=== PATIENT | female | born 1970 | race Caucasian/White ===

== ENCOUNTER 2018-06-10 18:22 | Inpatient (IN) | payer OTHER ==
[~2018-06-10] VITALS: Ht 177.8 cm; Wt 114.8 kg
[2018-06-10] MEDS ORDERED: ONDANSETRON HCL 4MG/2ML INJ IV STA (18:54)
[2018-06-10] MEDS ORDERED: MORPHINE SULFATE 4 MG/ML CPJ (NOT FOR IM USE) IV STA (18:54)
[2018-06-10] MEDS ORDERED: SODIUM CHLORIDE 0.9% 1,000 ML IV ONE (18:54)
[2018-06-10] MEDS ORDERED: TETANUS, DIPHTHERIA, PERTUSSIS VAC/PF 0.5ML (>7YR OLD) IM ONE (19:00)
[2018-06-10] MEDS ORDERED: BACITRACIN ZINC OINT UDPKT TOP ONE (19:00)
[2018-06-10] MEDS ORDERED: LIDOCAINE HCL/PF 1% 10 MG/ML 5ML VIAL IJ ONE (19:00)
[2018-06-10 21:28] LABS: HEMATOCRIT. 40.8 % (36.0-48.0); HEMOGLOBIN. 14.4 g/dL (12.0-16.0); MEAN CORPUSCULAR HEMOGLOBIN 28.5 pg (28.0-32.0); MEAN CORPUSCULAR VOLUME 80.7 fL (81.0-99.0); MEAN PLATELET VOLUME 7.1 fl (7.4-10.4); PLATELET 554 x1000/uL (130-400); RED BLOOD CELL COUNT 5.06 mill/uL (4.2-5.4); RED CELL DISTRIBUTION WIDTH 13.1 % (11.6-14.6)
[2018-06-10 21:35] LABS: CHLORIDE 107 mEq/L (98-107); PARTIAL THROMBOPLASTIN TIME 26.9 sec (23.4-31.0); PROTHROMBIN TIME 9.9 sec (9.1-11.1)
[2018-06-10 21:36] LABS: HCG SCREEN NEGATIVE
[2018-06-10] MEDS ORDERED: SODIUM CHLORIDE 0.9% 1000ML BAG (SEPSIS BOLUS) IV ONE (21:45)
[2018-06-10 22:03] LABS: PLATELET ESTIMATE INCREASED
[2018-06-10 23:43] LABS: CLARITY URINE CLEAR (CLEAR); COLOR URINE YELLOW (YELLOW); KETONES URINE TRACE (NEGATIVE); LEUKOCYTE ESTERASE URINE NEGATIVE (NEGATIVE); NITRITE URINE NEGATIVE (NEGATIVE); OCCULT BLOOD URINE 1+ (NEGATIVE); PH URINE 6.5 (4.5-8.0); PROTEIN URINE NEGATIVE (NEGATIVE); SPECIFIC GRAVITY URINE 1.019 (1.005-1.030)
[2018-06-10] MEDS ORDERED: LORAZEPAM 2MG/ML CPJ IV PRN (23:45)
[2018-06-10] MEDS ORDERED: CLONIDINE 0.1MG TABLET PO PRN (23:45)
[2018-06-11] MEDS: HYDROCODONE/ACETAMINOPHEN 5/325MG TABLET PO PRN ×2 (03:11→09:12)
[2018-06-11] MEDS: ONDANSETRON HCL 4MG/2ML INJ IV PRN ×2 (03:11→12:38)
[2018-06-11 06:27] VITALS: BP 128/75
[2018-06-11] MEDS ORDERED: DOCUSATE SODIUM 100MG CAPSULE PO PRN (08:00)
[2018-06-11] MEDS ORDERED: HYDROCODONE/ACETAMINOPHEN 5/325MG TABLET PO PRN (08:00)
[2018-06-11] MEDS ORDERED: ENOXAPARIN 40MG/0.4ML SYR SUBCUT SCH (08:00)
[2018-06-11] MEDS ORDERED: ONDANSETRON HCL 4MG/2ML INJ IV PRN (08:00)
[2018-06-11] MEDS ORDERED: ACETAMINOPHEN 650MG SUPP PR PRN (08:00)
[2018-06-11 09:00] VITALS: BP 153/84
[2018-06-11] MEDS: ENOXAPARIN 40MG/0.4ML SYR SUBCUT SCH ×3 (09:00→21:39)
[2018-06-11] MEDS: ASPIRIN 81MG EC TABLET PO SCH (09:12)
[2018-06-11] MEDS: THIAMINE HCL 100MG TABLET PO SCH (09:12)
[2018-06-11] MEDS: LEVOFLOXACIN 500MG PREMIX 100 ML IV SCH (11:13)
[2018-06-11] MEDS: SODIUM CHLORIDE 0.9% 1,000 ML IV SCH ×2 (11:18→16:19)
[2018-06-11] MEDS ORDERED: VENL150C2 PO (13:17)
[2018-06-11] MEDS ORDERED: TRAZ-212 PO (13:18)
[2018-06-11] MEDS: ACETAMINOPHEN 325MG TABLET PO PRN (18:19)
[2018-06-11 20:00] VITALS: BP 124/65
[2018-06-11 22:56] LABS: *AMPHETAMINES SCREEN URINE NEGATIVE (NEGATIVE)
[2018-06-11 22:57] LABS: *BARBITURATES SCREEN URINE NEGATIVE (NEGATIVE); *BENZODIAZEPINES SCREEN URINE NEGATIVE (NEGATIVE); *COCAINE SCREEN URINE NEGATIVE (NEGATIVE); METHADONE URINE SCREEN NEGATIVE (NEGATIVE); PHENCYCLIDINE URINE SCREEN NEGATIVE (NEGATIVE)
[2018-06-11 22:58] LABS: CANNABINOID URINE SCREEN NEGATIVE (NEGATIVE)
[2018-06-11 22:59] LABS: OPIATES URINE SCREEN PRESUMTIVE POSITIVE (NEGATIVE)
[2018-06-12] VITALS: BP 117/55
[2018-06-12 04:00] VITALS: BP 123/58
[2018-06-12 08:00] VITALS: BP 112/72
[2018-06-12] MEDS: SODIUM CHLORIDE 0.9% 1,000 ML IV SCH (08:59)
[2018-06-12] MEDS: ASPIRIN 81MG EC TABLET PO SCH (09:20)
[2018-06-12] MEDS: ACETAMINOPHEN 325MG TABLET PO PRN ×2 (09:20→16:13)
[2018-06-12] MEDS: THIAMINE HCL 100MG TABLET PO SCH (09:20)
[2018-06-12] MEDS: LEVOFLOXACIN 500MG PREMIX 100 ML IV SCH (09:20)
[2018-06-12] MEDS: ENOXAPARIN 40MG/0.4ML SYR SUBCUT SCH (09:21)
[2018-06-12 12:00] VITALS: BP 142/73
[2018-06-12 15:32] LABS: BASOPHILS % 0.9 % (0.0-2.0); EOSINOPHILS % 3.4 % (0.0-5.0); HEMATOCRIT. 36.4 % (36.0-48.0); HEMOGLOBIN. 12.8 g/dL (12.0-16.0); LYMPHOCYTES % 34.1 % (20.0-50.0); MEAN CORPUSCULAR HEMOGLOBIN 28.7 pg (28.0-32.0); MEAN CORPUSCULAR VOLUME 81.6 fL (81.0-99.0); MEAN PLATELET VOLUME 7.1 fl (7.4-10.4); MONOCYTES % 8.4 % (2.0-8.0); NEUTROPHILS % 53.2 % (40.0-76.0); PLATELET 527 x1000/uL (130-400); RED BLOOD CELL COUNT 4.46 mill/uL (4.2-5.4); RED CELL DISTRIBUTION WIDTH 12.9 % (11.6-14.6)
[2018-06-12 15:38] LABS: CHLORIDE 107 mEq/L (98-107)
[2018-06-12 16:00] VITALS: BP 119/64
[2018-06-12] MEDS ORDERED: POTASSIUM CHLORIDE 20MEQ TABLET SR PO NR (16:45)
[2018-06-12 20:00] VITALS: BP 112/70
[2018-06-12] MEDS ORDERED: ENOXAPARIN 30MG/0.3ML SYR SUBCUT SCH (21:00)
[2018-06-13] VITALS: BP 123/66
[2018-06-13 04:00] VITALS: BP 118/72
[2018-06-13 06:23] LABS: EOSINOPHILS % 6.5 % (0.0-5.0); HEMATOCRIT. 37.5 % (36.0-48.0); HEMOGLOBIN. 13.3 g/dL (12.0-16.0); LYMPHOCYTES % 33.7 % (20.0-50.0); MEAN CORPUSCULAR HEMOGLOBIN 28.8 pg (28.0-32.0); MEAN CORPUSCULAR VOLUME 81.4 fL (81.0-99.0); MEAN PLATELET VOLUME 7.2 fl (7.4-10.4); MONOCYTES % 8.6 % (2.0-8.0); NEUTROPHILS % 50.2 % (40.0-76.0); PLATELET 501 x1000/uL (130-400); RED CELL DISTRIBUTION WIDTH 13.2 % (11.6-14.6)
[2018-06-13 07:34] LABS: CHLORIDE 106 mEq/L (98-107)
[2018-06-13 07:46] LABS: PHOSPHORUS 3.2 mg/dL (2.5-4.9)
[2018-06-13 08:00] VITALS: BP 125/69
[2018-06-13] MEDS: LEVOFLOXACIN 500MG PREMIX 100 ML IV SCH (09:00)
[2018-06-13] MEDS: THIAMINE HCL 100MG TABLET PO SCH (09:00)
[2018-06-13] MEDS: ASPIRIN 81MG EC TABLET PO SCH (09:00)
[2018-06-13 12:00] VITALS: BP 133/74
[2018-06-13] MEDS: ACETAMINOPHEN 325MG TABLET PO PRN (12:57)
[2018-06-13 14:44] VITALS: BP 133/74
== END 2018-06-13 15:35 | disposition home or self-care (01) | DRG 392 ==
LOC: ER 18:22 → 6WST 23:38 → ENRESERV 06-11 05:00
PROVIDERS: ADMIT Internal Medicine Nephrology; ATTEND Internal Medicine Nephrology
PROC: 0HQ1XZZ Repair Face Skin, External Approach (ICD-10-PCS; principal; 2018-06-10)
DX: K52.9 Noninfective gastroenteritis and colitis, unspecified (principal); E87.6 Hypokalemia; D58.0 Hereditary spherocytosis; S01.81XA Laceration without foreign body of other part of head, initial encounter; M48.02 Spinal stenosis, cervical region; W17.89XA Other fall from one level to another, initial encounter; Y93.89 Activity, other specified; Y92.89 Other specified places as the place of occurrence of the external cause; Y99.8 Other external cause status; Z90.81 Acquired absence of spleen; D72.829 Elevated white blood cell count, unspecified; Z68.36 Body mass index [BMI] 36.0-36.9, adult
CPT/HCPCS: 12011; 36415; 71045; 72070; 72100; 73030; 73560; 80048; 80305; 83605; 83735; 84100; 84703; 86850; 86900; 90471; 90715; 93005; 96374; 96375; 97162; 97535; 99285; J1650; J1956; J2270; J2405; J3490; J7030; J7040; J7050; A4315